=== PATIENT | male | born 1970 | race Caucasian/White ===

== ENCOUNTER 2018-01-09 16:57 | Emergency (ER) | payer OTHER ==
[2018-01-09 17:16] VITALS: BP 117/78; PULSE 98; RESP 18; TEMP 97.9; O2SAT 99
[2018-01-09] MEDS ORDERED: CLON1 PO (17:16)
[2018-01-09] MEDS ORDERED: PAXI10TA8 PO (17:16)
--- NOTE | 2018-01-09 17:41 | PD ---
HPI Chief Complaint: Psychiatric Symptoms Time Seen by Provider: 17:29 Travel History International Travel<30 days: No Contact w/Intl Traveler<30days: No Traveled to known affect area: No History of Present Illness HPI This patient presents under police Bryant act. He made suicidal statements to his who then called the police department. Patient this time says he does not feel suicidal. He did not have a specific plan. He has had some alcohol today but denies any illicit drugs. He took a dose of Ativan which she is prescribed for anxiety over the last 10 years. No alleviating factors. Symptoms severity was moderate. No exacerbating factors. Duration one week. He denies any physical complaints at this time [facility] Social History Alcohol Use: Yes Tobacco Use: No Substance Use: No Allergies-Medications (Allergen,Severity, Reaction): Coded Allergies: No Known Allergies (Unverified , 01/09/18) Reported Meds & Prescriptions Reported Meds & Active Scripts Active Reported Klonopin (Clonazepam) 1 Mg Tab 1 Mg PO DAILY Paxil (Paroxetine HCl) 10 Mg Tab 5 Mg PO DAILY Review of Systems General / Constitutional: No: Fever Eyes: No: Visual changes HENT: No: Headaches Cardiovascular: No: Chest Pain or Discomfort Respiratory: No: Shortness of Breath Gastrointestinal: No: Abdominal Pain Genitourinary: No: Dysuria Musculoskeletal: No: Pain Skin: No Rash Neurologic: No: Weakness Psychiatric: Positive: Depression, Suicidal Ideations Endocrine: No: Polydipsia Hematologic/Lymphatic: No: Easy Bruising Physical Exam Narrative GENERAL: Well-nourished, well-developed patient in no apparent distress. SKIN: Focused skin assessment reveals no rash and nodules. Skin is Warm and dry. HEAD: Atraumatic. Normocephalic. EYES: Pupils equal and round. No scleral icterus. No injection or drainage. ENT: No nasal bleeding or discharge. Mucous membranes pink and moist. NECK: Trachea midline. No JVD. CARDIOVASCULAR: Regular rate and rhythm. No murmur appreciated. RESPIRATORY: No accessory muscle use. Clear to auscultation. Breath sounds equal bilaterally. GASTROINTESTINAL: Abdomen soft, non-tender, nondistended. Hepatic and splenic margins not palpable. MUSCULOSKELETAL: No obvious deformities. No clubbing. No cyanosis. No edema. NEUROLOGICAL: Awake and alert. No obvious cranial nerve deficits. Motor grossly within normal limits. Normal speech. PSYCHIATRIC: Depressed mood and flat affect; insight and judgment reduced. Data Data Last Documented VS Vital Signs Date Time Temp Pulse Resp B/P (MAP) Pulse Ox O2 Delivery O2 Flow Rate FiO2 01/09/18 17:16 97.9 98 18 117/78 (91) 99 Orders Orders Complete Blood Count With Diff (01/09/18 17:33) Comprehensive Metabolic Panel (01/09/18 17:33) Thyroid Stimulating Hormone (01/09/18 17:33) Psych Screen (01/09/18 17:33) Drug Screen, Random Urine (01/09/18 17:33) Alcohol (Ethanol) (01/09/18 17:33) Labs Laboratory Tests Test 01/09/18 17:30 White Blood Count 9.8 TH/MM3 Red Blood Count 5.73 MIL/MM3 Hemoglobin 16.6 GM/DL Hematocrit 48.2 % Mean Corpuscular Volume 84.2 FL Mean Corpuscular Hemoglobin 29.0 PG Mean Corpuscular Hemoglobin Concent 34.4 % Red Cell Distribution Width 13.5 % Platelet Count 347 TH/MM3 Mean Platelet Volume 7.6 FL Neutrophils (%) (Auto) 61.5 % Lymphocytes (%) (Auto) 25.8 % Monocytes (%) (Auto) 9.0 % Eosinophils (%) (Auto) 3.3 % Basophils (%) (Auto) 0.4 % Neutrophils # (Auto) 6.0 TH/MM3 Lymphocytes # (Auto) 2.5 TH/MM3 Monocytes # (Auto) 0.9 TH/MM3 Eosinophils # (Auto) 0.3 TH/MM3 Basophils # (Auto) 0.0 TH/MM3 CBC Comment DIFF FINAL Differential Comment Blood Urea Nitrogen 13 MG/DL Creatinine 1.03 MG/DL Random Glucose 89 MG/DL Total Protein 7.8 GM/DL Albumin 4.4 GM/DL Calcium Level 9.1 MG/DL Alkaline Phosphatase 96 U/L Aspartate Amino Transf (AST/SGOT) 12 U/L Alanine Aminotransferase (ALT/SGPT) 25 U/L Total Bilirubin 0.3 MG/DL Sodium Level 141 MEQ/L Potassium Level 4.0 MEQ/L Chloride Level 107 MEQ/L Carbon Dioxide Level 27.4 MEQ/L Anion Gap 7 MEQ/L Estimat Glomerular Filtration Rate 78 ML/MIN Thyroid Stimulating Hormone 3rd Gen 3.000 uIU/ML Urine Opiates Screen NEG Urine Barbiturates Screen NEG Urine Amphetamines Screen NEG Urine Benzodiazepines Screen NEG Urine Cocaine Screen NEG Urine Cannabinoids Screen NEG Ethyl Alcohol Level 114 MG/DL MDM Medical Decision Making Medical Screen Exam Complete: Yes Emergency Medical Condition: Yes Medical Record Reviewed: Yes Differential Diagnosis Depression, adjustment disorder, suicidal ideation Narrative Course I have reviewed the patient's electronic medical record. I've ordered a medical clearance workup to include tox screen and labs Patient presents her Bryant act so I've ordered psychiatric evaluation Tox screen is negative Alcohol is 114 indicating acute intoxication CBC metabolic profiles and TSH are normal Patient is awaiting psychiatric evaluation and with that will determine disposition He will sober up a bit and be medically stable Diagnosis Primary Impression: Depression with suicidal ideation Additional Impression: Alcohol intoxication Qualified Codes: F10.920 - Alcohol use, unspecified with intoxication, uncomplicated Jovanni Parrish MD Jan 09, 2018 17:41
[2018-01-09 17:55] LABS: BASOPHIL % 0.4 % (0.0-2.0); EOSINOPHIL # 0.3 TH/MM3 (0-0.4); EOSINOPHIL % 3.3 % (0.0-4.0); HEMATOCRIT 48.2 % (39.0-51.0); HEMOGLOBIN 16.6 GM/DL (13.0-17.0); LYMPH % 25.8 % (9.0-44.0); LYMPHOCYTE # 2.5 TH/MM3 (1.0-4.8); MEAN CELL VOLUME 84.2 FL (80.0-100.0); MEAN CORPUSCULAR HGB CONC 34.4 % (32.0-36.0); MEAN PLATELET VOLUME 7.6 FL (7.0-11.0); MONOCYTE # 0.9 TH/MM3 (0-0.9); NEUT % 61.5 % (16.0-70.0); PLATELET COUNT 347 TH/MM3 (150-450); RED BLOOD COUNT 5.73 MIL/MM3 (4.50-5.90); RED CELL DISTRIBUTION WIDTH 13.5 % (11.6-17.2); WHITE BLOOD COUNT 9.8 TH/MM3 (4.0-11.0)
[2018-01-09 18:04] LABS: ALBUMIN 4.4 GM/DL (3.4-5.0); AST (GOT) 12 U/L (15-37); BICARBONATE 27.4 MEQ/L (21.0-32.0); BLOOD UREA NITROGEN 13 MG/DL (7-18); CALCIUM 9.1 MG/DL (8.5-10.1); CHLORIDE 107 MEQ/L (98-107); CREATININE 1.03 MG/DL (0.60-1.30); GLOMERULAR FILTRATION RATE 78 ML/MIN (>89); GLUCOSE,RANDOM 89 MG/DL (74-106); SODIUM (NA) 141 MEQ/L (136-145)
[2018-01-09 18:05] LABS: ALT (GPT) 25 U/L (12-78)
[2018-01-09 18:14] LABS: ALKALINE PHOSPHATASE 96 U/L (45-117); TOTAL BILIRUBIN ADULT 0.3 MG/DL (0.2-1.0); TOTAL PROTEIN 7.8 GM/DL (6.4-8.2)
[2018-01-10 07:00] VITALS: BP 116/74; PULSE 93; RESP 17; TEMP 98.1; O2SAT 99
[2018-01-10 10:00] VITALS: BP 120/78; PULSE 91; RESP 20; O2SAT 95
[2018-01-10] MEDS ORDERED: ACETAMINOPHEN 325 MG TAB PO ONE (11:30)
--- NOTE | 2018-01-10 13:02 | PD ---
History of Present Illness Chief Complaint: Psychiatric Symptoms Time Seen by Provider: 12:45 Travel History International Travel<30 Days: No Contact w/Intl Traveler<30days: No Known affected area: No Legal Status Legal Status: Bryant Act Bryant Act Signed By: Omar Carvalho History of Present Illness: History of Present Illness HPI This patient is a 47-year-old male with reported history of ADHD, anxiety disorder who in context of being involved in an argument with his as well as being under the influence of alcohol was placed under a Bryant act initiated by law enforcement. The report alleges that the patient stated to his that he would be better off if she came home and he was . His called the police after he stated to her that she would come home and find him in a pool of blood. While speaking with deputies he also admitted to making the statements that he would rather be . While en route he stated his life his rent and now he really would rather be . The patient did not make any attempt at harming himself. He states that the comments he made where made while he was arguing with his and that he was also under the influence of alcohol. His blood alcohol level on arrival was 114. He states" if I said that it was for attention. I'm in this profession to care for people and I would never hurt myself or anyone else. I also care about my dog and my ." Electronic medical record is reviewed. No previous contact with [facility] psychiatry Department. Toxicology is negative for any substances including benzodiazepines and amphetamines. Patient was monitored in emergency department and he presented no behavioral concerns and no suicidality. He is alert, oriented, dressed in hospital gown with disheveled appearance. His speech is clear, logical and goal-directed. There is no evidence of any psychosis, no gentry or hypomania. Mood is anxious. He denies any suicidal or homicidal ideation intent or plan. Fund of knowledge is adequate. Concentration and attention are not impaired. He continues to deny that he meant the statements that he made he acknowledges that he has a remote history of alcohol abuse. 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 He is concerned about losing his job as well. Eye contact his Katie with his consent to obtain collateral information. She tells me that this is not the first time that he has made threats. She also reports that he has started to drink again which had been a problem in the past. He further indicates that she will be seeking an injunction to have him stay away from the house. PFSH Past Medical History Anxiety: Yes Depression: Yes Diminished Hearing: No Tetanus Vaccination: Unknown Influenza Vaccination: Yes Past Surgical History Tonsillectomy: Yes Psychiatric History Psychiatric History Hx Psychiatric Treatment: Was diagnosed 5 years ago with ADHD, anxiety. No previous psych hospitalizations. No previous suicide attempts. CURRENTLY PRESCRIBED VYVANCE, PAXIL AND KLONOPIN History of Inpatient Treatment: No Guns or firearms in home: No Social History Born in [place]. In [place] for the past 8 years. Has been twice. Has no children. Patient works as a psychiatry physician. Hx Alcohol Use: Yes Hx Tobacco Use: No Hx Substance Use: Yes Substance Use Type: Alcohol Other Substances Used: SAYS THAT HE NORMALLY DOES NOT DRINK Hx of Substance Use Treatment: No Family Psychiatric History Negative Allergies-Medications (Allergen,Severity, Reaction): Coded Allergies: No Known Allergies (Unverified , 01/09/18) Reported Meds & Prescriptions Reported Meds & Active Scripts Active Reported Klonopin (Clonazepam) 1 Mg Tab 1 Mg PO DAILY Paxil (Paroxetine HCl) 10 Mg Tab 5 Mg PO DAILY Review of Systems Psychiatric: COMPLAINS OF: Anxiety Except as stated in HPI: all other systems reviewed are Neg Mental Status Examination Appearance: Disheveled Consciousness: Alert Orientation: x4 Motor Activity: Normal gait Speech: Unremarkable Language: Adequate Fund of Knowledge: Adequate Memory: Unremarkable Mood: Anxious Affect: Appropriate Thought Process & Associations: Intact, Logical, Goal directed Thought Content: Appropriate Hallucination Type: None Delusion Type: None Suicidal Ideation: No Suicidal Plan: No Suicidal Intention: No Homicidal Ideation: No Homicidal Plan: No Homicidal Intention: No Insight: Fair Judgment: Adequate MDM Medical Decision Making Medical Record Reviewed: Yes Assessment/Plan 47-year-old male who while in context of an argument with his as well as being under the influence of alcohol made friends over the telephone to his that he would be better off if she came home and he was . Patient admits to having made the statements but denies any suicidal intent. He further states that he made them to get his 's attention as she was not at home and they had been arguing. He does acknowledge that the alcohol had an effect on his judgment. At this time the patient is future oriented and does not meet criteria to remain under the Bryant act. Patient is provided with psychoeducation the recommendation to abstain from alcohol. He also states that he will be going home and will probably staying out of the house. The Bryant act is lifted. Psychiatric clear for discharge from the ED. Orders Orders Complete Blood Count With Diff (01/09/18 17:33) Comprehensive Metabolic Panel (01/09/18 17:33) Thyroid Stimulating Hormone (01/09/18 17:33) Psych Screen (01/09/18 17:33) Drug Screen, Random Urine (01/09/18 17:33) Alcohol (Ethanol) (01/09/18 17:33) Diet Regular Basic (01/10/18 Breakfast) Acetaminophen (Tylenol) (01/10/18 11:30) Diet Regular Basic (01/10/18 Lunch) Results Vital Signs Date Time Temp Pulse Resp B/P (MAP) Pulse Ox O2 Delivery O2 Flow Rate FiO2 01/10/18 10:00 91 20 120/78 (92) 95 Room Air 01/10/18 07:00 93 17 01/10/18 07:00 98.1 93 17 116/74 (88) 99 Room Air 01/09/18 17:16 97.9 98 18 117/78 (91) 99 Laboratory Tests Test 01/09/18 17:30 White Blood Count 9.8 Red Blood Count 5.73 Hemoglobin 16.6 Hematocrit 48.2 Mean Corpuscular Volume 84.2 Mean Corpuscular Hemoglobin 29.0 Mean Corpuscular Hemoglobin Concent 34.4 Red Cell Distribution Width 13.5 Platelet Count 347 Mean Platelet Volume 7.6 Neutrophils (%) (Auto) 61.5 Lymphocytes (%) (Auto) 25.8 Monocytes (%) (Auto) 9.0 Eosinophils (%) (Auto) 3.3 Basophils (%) (Auto) 0.4 Neutrophils # (Auto) 6.0 Lymphocytes # (Auto) 2.5 Monocytes # (Auto) 0.9 Eosinophils # (Auto) 0.3 Basophils # (Auto) 0.0 CBC Comment DIFF FINAL Differential Comment Blood Urea Nitrogen 13 Creatinine 1.03 Random Glucose 89 Total Protein 7.8 Albumin 4.4 Calcium Level 9.1 Alkaline Phosphatase 96 Aspartate Amino Transf (AST/SGOT) 12 Alanine Aminotransferase (ALT/SGPT) 25 Total Bilirubin 0.3 Sodium Level 141 Potassium Level 4.0 Chloride Level 107 Carbon Dioxide Level 27.4 Anion Gap 7 Estimat Glomerular Filtration Rate 78 Thyroid Stimulating Hormone 3rd Gen 3.000 Urine Opiates Screen NEG Urine Barbiturates Screen NEG Urine Amphetamines Screen NEG Urine Benzodiazepines Screen NEG Urine Cocaine Screen NEG Urine Cannabinoids Screen NEG Ethyl Alcohol Level 114 Diagnosis Primary Impression: Alcohol intoxication Psychiatrically Cleared: Yes Med/ Other Pt Specific Info: No Change to Meds Disposition: 01 DISCHARGE HOME Condition: Stable Problem Qualifiers Primary Impression: Alcohol intoxication Qualified Codes: F10.920 - Alcohol use, unspecified with intoxication, uncomplicated Yolanda Finnegan Jan 10, 2018 13:02
[2018-01-10 13:33] VITALS: BP 115/76; PULSE 89; RESP 19; O2SAT 98
--- NOTE | 2018-01-10 13:33 | PD ---
Physical Exam Date Seen by Provider: Jan 10, 2018 Time Seen by Provider: 13:30 Data Data Last Documented VS Vital Signs Date Time Temp Pulse Resp B/P (MAP) Pulse Ox O2 Delivery O2 Flow Rate FiO2 01/10/18 10:00 91 20 120/78 (92) 95 Room Air 01/10/18 07:00 98.1 Orders Orders Complete Blood Count With Diff (01/09/18 17:33) Comprehensive Metabolic Panel (01/09/18 17:33) Thyroid Stimulating Hormone (01/09/18 17:33) Psych Screen (01/09/18 17:33) Drug Screen, Random Urine (01/09/18 17:33) Alcohol (Ethanol) (01/09/18 17:33) Diet Regular Basic (01/10/18 Breakfast) Acetaminophen (Tylenol) (01/10/18 11:30) Diet Regular Basic (01/10/18 Lunch) Labs Laboratory Tests Test 01/09/18 17:30 White Blood Count 9.8 TH/MM3 Red Blood Count 5.73 MIL/MM3 Hemoglobin 16.6 GM/DL Hematocrit 48.2 % Mean Corpuscular Volume 84.2 FL Mean Corpuscular Hemoglobin 29.0 PG Mean Corpuscular Hemoglobin Concent 34.4 % Red Cell Distribution Width 13.5 % Platelet Count 347 TH/MM3 Mean Platelet Volume 7.6 FL Neutrophils (%) (Auto) 61.5 % Lymphocytes (%) (Auto) 25.8 % Monocytes (%) (Auto) 9.0 % Eosinophils (%) (Auto) 3.3 % Basophils (%) (Auto) 0.4 % Neutrophils # (Auto) 6.0 TH/MM3 Lymphocytes # (Auto) 2.5 TH/MM3 Monocytes # (Auto) 0.9 TH/MM3 Eosinophils # (Auto) 0.3 TH/MM3 Basophils # (Auto) 0.0 TH/MM3 CBC Comment DIFF FINAL Differential Comment Blood Urea Nitrogen 13 MG/DL Creatinine 1.03 MG/DL Random Glucose 89 MG/DL Total Protein 7.8 GM/DL Albumin 4.4 GM/DL Calcium Level 9.1 MG/DL Alkaline Phosphatase 96 U/L Aspartate Amino Transf (AST/SGOT) 12 U/L Alanine Aminotransferase (ALT/SGPT) 25 U/L Total Bilirubin 0.3 MG/DL Sodium Level 141 MEQ/L Potassium Level 4.0 MEQ/L Chloride Level 107 MEQ/L Carbon Dioxide Level 27.4 MEQ/L Anion Gap 7 MEQ/L Estimat Glomerular Filtration Rate 78 ML/MIN Thyroid Stimulating Hormone 3rd Gen 3.000 uIU/ML Urine Opiates Screen NEG Urine Barbiturates Screen NEG Urine Amphetamines Screen NEG Urine Benzodiazepines Screen NEG Urine Cocaine Screen NEG Urine Cannabinoids Screen NEG Ethyl Alcohol Level 114 MG/DL [facility] Medical Record Reviewed: Yes Supervised Visit with JON: No Narrative Course 47-year-old male presented to the emergency room under Bryant act initiated by Police Department after he made statements to his stating he would kill himself. He denies suicidal or homicidal ideation at this time. Patient is ambulating and well appearing in the emergency room. Labs reviewed and are unremarkable. Vital signs stable. Patient was seen by psychiatric nurse practitioner in [place] act was lifted. He is stable for outpatient follow-up. Diagnosis Primary Impression: Alcohol intoxication Qualified Codes: F10.920 - Alcohol use, unspecified with intoxication, uncomplicated Additional Impression: Adjustment disorder Qualified Codes: F43.20 - Adjustment disorder, unspecified Referrals: VALARIE (Out patient) Primary Care Physician Additional Instruction: Follow up with Brock victor. Return to the emergency room for worsening symptoms. Disposition: 01 DISCHARGE HOME Condition: Stable Giselle Romero Jan 10, 2018 13:33
== END 2018-01-10 13:45 | disposition home or self-care (01) ==
LOC: EDSEX 16:57 → NEPD 16:57
DX: F32.9 Major depressive disorder, single episode, unspecified (principal); R45.851 Suicidal ideations; F10.129 Alcohol abuse with intoxication, unspecified; Y90.5 Blood alcohol level of 100-119 mg/100 ml; F43.22 Adjustment disorder with anxiety; F90.9 Attention-deficit hyperactivity disorder, unspecified type
CPT/HCPCS: 80053; 80307; 84443; 85025; 99284

== ENCOUNTER 2018-03-12 10:34 | Emergency (ER) | payer OTHER ==
[~2018-03-12] VITALS: Ht 175.3 cm; Wt 80.0 kg
[~2018-03-12 10:34] MED LIST: CLON1 PO; PAXI10TA8 PO
[2018-03-12 10:39] VITALS: BP 112/68; PULSE 106; RESP 18; TEMP 98.4; O2SAT 99
[2018-03-12] MEDS ORDERED: TEMA30CA PO (10:47)
[2018-03-12] MEDS ORDERED: LISD30 PO (10:47)
--- NOTE | 2018-03-12 11:10 | PD ---
HPI Chief Complaint: Pain: Acute or Chronic Time Seen by Provider: 10:43 Travel History International Travel<30 days: No Contact w/Intl Traveler<30days: No Traveled to known affect area: No History of Present Illness HPI 47-year-old male with history of lower back pain in the past, presents emergency department with 3 week history of right lower lumbar pain with radiation into the right leg. Patient presents today with increased episodes of his right leg "giving out on him." Patient denies any specific injury. Patient is currently scheduled to follow-up with a pain specialist, but not until next week. He is concerned due to the new symptom of his leg giving out worsening over the past 3 days. Pain described as intermittent and sharp, with radiation into the right hip and leg. Pain is 6/10 at rest, and 10/ 10 when it flares up. Patient has been trying heat, ice, and stretching. Patient denies bowel or bladder changes. Patient has no known drug allergies. PFSH Past Medical History Anxiety: Yes Depression: Yes Diminished Hearing: No Tetanus Vaccination: < 5 Years Past Surgical History Tonsillectomy: Yes Social History Alcohol Use: Yes Tobacco Use: No Substance Use: No Allergies-Medications (Allergen,Severity, Reaction): Coded Allergies: No Known Allergies (Unverified , 03/12/18) Reported Meds & Prescriptions Reported Meds & Active Scripts Active Reported Temazepam 30 Mg Cap 30 Mg PO Vyvanse (Lisdexamfetamine Dimesylate) 30 Mg Cap 30 Mg PO DAILY Review of Systems Except as stated in HPI: all other systems reviewed are Neg General / Constitutional: No: Fever Eyes: No: Visual changes HENT: No: Headaches Cardiovascular: No: Chest Pain or Discomfort Respiratory: No: Shortness of Breath Gastrointestinal: No: Abdominal Pain Genitourinary: No: Dysuria Musculoskeletal: Positive: Arthralgias, Limited ROM, Pain, Other (See history of present illness per) Skin: No Rash Neurologic: No: Weakness Psychiatric: No: Depression Endocrine: No: Polydipsia Hematologic/Lymphatic: No: Easy Bruising Physical Exam Narrative GENERAL: Patient appears fit and thin and in no acute distress. SKIN: Warm and dry. Normal color. Normal turgor. No rash. HEAD: Atraumatic. Normocephalic. EYES: Pupils equal and round. No scleral icterus. No injection or drainage. ENT: No nasal bleeding or discharge. Mucous membranes pink and moist. Pharynx is clear. Airways patent. NECK: Trachea midline. Supple and nontender. CARDIOVASCULAR: Regular rate and rhythm. RESPIRATORY: No accessory muscle use. Clear to auscultation. Breath sounds equal bilaterally. GASTROINTESTINAL: Abdomen soft, non-tender, nondistended. Hepatic and splenic margins not palpable. MUSCULOSKELETAL: Extremities without clubbing, cyanosis, or edema. No obvious deformities. Patient has pain with palpation along the right lower lumbar spine into the right sacroiliac region. He has normal deep tendon reflexes bilaterally. He has no obvious decrease in strength. Patient was able to squat , but when he stood up he had sudden onset pain and weakness in the right hip reproducing his symptoms that he is complaining about. NEUROLOGICAL: Awake and alert. No obvious cranial nerve deficits. Motor grossly within normal limits. Five out of 5 muscle strength in the arms and legs. Normal speech. PSYCHIATRIC: Appropriate mood and affect; insight and judgment normal. Data Data Last Documented VS Vital Signs Date Time Temp Pulse Resp B/P (MAP) Pulse Ox O2 Delivery O2 Flow Rate FiO2 03/12/18 10:39 98.4 106 18 112/68 (83) 99 Orders Orders Mri L Spine W/O Contrast (03/12/18 10:49) MDM Medical Decision Making Medical Screen Exam Complete: Yes Emergency Medical Condition: Yes Differential Diagnosis Right lumbar strain. Iliopsoas syndrome. Sciatica. Possible disc herniation. Narrative Course Patient is medically stable at time of exam. MRI of the lumbar spine is ordered. MRI results show: The most caudal appearing lumbar vertebra is numbered as L5. There is disc desiccation identified greatest at L3-4 through L5-S1. Mild disc space narrowing at L3-4 through L5-S1. Conus unremarkable. Bone marrow signal intensity is normal. T12-L1: The thecal sac has a normal diameter. No evidence of disc bulge or protrusion. The neural foramina are patent bilaterally. L1-L2: The thecal sac has a normal diameter. No evidence of disc bulge or protrusion. The neural foramina are patent bilaterally. L2-L3: The thecal sac has a normal diameter. No evidence of disc bulge or protrusion. The neural foramina are patent bilaterally. L3-L4: Mild diffuse disc bulge and facet and ligamentum flavum hypertrophy. Mild abutment of the right L3 exiting nerve. No canal or foraminal narrowing. L4-L5: Mild diffuse disc bulge greatest on the right foraminal region without neural compromise. Mild facet hypertrophy. L5-S1: There is moderate facet arthropathy and mild diffuse disc bulges seen eccentric to the right foraminal region with mild abutment of the right L5 exiting nerve. Bilateral L5 pars defects are identified with minimal anterolisthesis of L5 on S1. Patient will be placed on ibuprofen 800 mg 3 times daily with food. Patient also given Flexeril 10 mg up to 3 times daily as needed muscle spasm #15 Patient to follow-up with pain management as previously scheduled. Copy of his MRI will be given to the patient at discharge. Diagnosis Primary Impression: Low back pain with right-sided sciatica Qualified Codes: M54.41 - Lumbago with sciatica, right side Referrals: Pain Management Patient Instructions: General Instructions, Lower Back Exercises (ED), Lumbar Radiculopathy (ED), Piriformis Syndrome (ED) Additional Instructions: MRI results show: The most caudal appearing lumbar vertebra is numbered as L5. There is disc desiccation identified greatest at L3-4 through L5-S1. Mild disc space narrowing at L3-4 through L5-S1. Conus unremarkable. Bone marrow signal intensity is normal. T12-L1: The thecal sac has a normal diameter. No evidence of disc bulge or protrusion. The neural foramina are patent bilaterally. L1-L2: The thecal sac has a normal diameter. No evidence of disc bulge or protrusion. The neural foramina are patent bilaterally. L2-L3: The thecal sac has a normal diameter. No evidence of disc bulge or protrusion. The neural foramina are patent bilaterally. L3-L4: Mild diffuse disc bulge and facet and ligamentum flavum hypertrophy. Mild abutment of the right L3 exiting nerve. No canal or foraminal narrowing. L4-L5: Mild diffuse disc bulge greatest on the right foraminal region without neural compromise. Mild facet hypertrophy. L5-S1: There is moderate facet arthropathy and mild diffuse disc bulges seen eccentric to the right foraminal region with mild abutment of the right L5 exiting nerve. Bilateral L5 pars defects are identified with minimal anterolisthesis of L5 on S1. Patient will be placed on ibuprofen 800 mg 3 times daily with food. Patient also given Flexeril 10 mg up to 3 times daily as needed muscle spasm #15 Patient to follow-up with pain management as previously scheduled. Copy of his MRI will be given to the patient at discharge. Med/Other Pt SpecificInfo: Prescription(s) given Disposition: 01 DISCHARGE HOME Condition: Stable Des Koch Mar 12, 2018 11:10
--- NOTE | 2018-03-12 12:03 | RADRPT ---
EXAM DATE/TIME: 03/12/2018 11:20 [place] COMPARISON: No previous studies available for comparison. INDICATIONS : Pain. Back and right leg pain. MEDICAL HISTORY : None. SURGICAL HISTORY : Left knee repair. ENCOUNTER: Initial ACUITY: 1 day PAIN SCORE: 5/10 LOCATION: [facility] TECHNIQUE: Multiplanar multisequence MRI of the lumbar spine was performed without contrast. FINDINGS: The most caudal appearing lumbar vertebra is numbered as L5. There is disc desiccation identified greatest at L3-4 through L5-S1. Mild disc space narrowing at L3- 4 through L5-S1. Conus unremarkable. Bone marrow signal intensity is normal. T12-L1: The thecal sac has a normal diameter. No evidence of disc bulge or protrusion. The neural foramina are patent bilaterally. L1-L2: The thecal sac has a normal diameter. No evidence of disc bulge or protrusion. The neural foramina are patent bilaterally. L2-L3: The thecal sac has a normal diameter. No evidence of disc bulge or protrusion. The neural foramina are patent bilaterally. L3-L4: Mild diffuse disc bulge and facet and ligamentum flavum hypertrophy. Mild abutment of the right L3 ex iting nerve. No canal or foraminal narrowing. L4-L5: Mild diffuse disc bulge greatest on the right foraminal region without neural compromise. Mild facet hypertrophy. L5-S1: There is moderate facet arthropathy and mild diffuse disc bulges seen eccentric to the right foramina l region with mild abutment of the right L5 exiting nerve. Bilateral L5 pars defects are identified w ith minimal anterolisthesis of L5 on S1. CONCLUSION: Mild degenerative changes are noted as above. Bilateral L5 spondylolysis with grade 1 anterolisthesis of L5 on S1. Adama Jeffers MD on March 12, 2018 at 11:50 Board Certified Radiologist. This report was verified electronically.
[2018-03-12] MEDS ORDERED: IBUP1TAB7 PO (12:13)
[2018-03-12] MEDS ORDERED: CYCL10TA PO (12:13)
== END 2018-03-12 12:39 | disposition home or self-care (01) ==
LOC: NEPD 10:34
DX: M54.41 Lumbago with sciatica, right side (principal)
CPT/HCPCS: 72148